=== PATIENT | male | born 1980 | race Caucasian/White ===

== ENCOUNTER 2018-12-16 00:15 | Emergency (ER) | payer OTHER ==
[~2018-12-16] VITALS: Ht 177.8 cm; Wt 109.0 kg
[2018-12-16 00:17] VITALS: BP 136/78
[2018-12-16] MEDS ORDERED: DIPHENHYDRAMINE 25MG CAPSULE PO ONE (01:30)
[2018-12-16] MEDS ORDERED: METOCLOPRAMIDE HCL 10MG TABLET PO ONE (01:30)
== END 2018-12-16 01:35 | disposition home or self-care (01) ==
LOC: ER 00:15
DX: R51 Headache (principal); E11.9 Type 2 diabetes mellitus without complications
CPT/HCPCS: 82962; 99283